=== PATIENT | female | born 1960 | race Caucasian/White ===

== ENCOUNTER 2016-11-26 08:14 | Inpatient (IN) | payer OTHER ==
[~2016-11-26] VITALS: Ht 162.6 cm; Wt 116.5 kg
[2016-11-26] VITALS (11 sets, daily range): BP systolic 94–176; BP diastolic 47–113
[2016-11-26] MEDS ORDERED: CARVEDILOL6.25 M1 PO (08:21)
[2016-11-26] MEDS ORDERED: ZESTRIL20 MG PO (08:22)
[2016-11-26] MEDS ORDERED: AMOXICILLIN500 M1 PO (08:22)
[2016-11-26 08:48] LABS: BASOPHIL % 0.8 % (0-2); PLATELET COUNT 314 x10^3mcL (130-400); RED CELL DISTRIBUTION WIDTH 18.8 % (11.5-14.5)
[2016-11-26 08:54] LABS: CALCIUM 8.5 mg/dL (8.5-10.1); CARBON DIOXIDE 24.1 mmol/L (21-32); CHLORIDE SERUM 103 mmol/L (98-107); CREATININE SERUM 1.2 mg/dL (0.6-1.0); GFR1 49 mL/min; GLUCOSE SERUM 327 mg/dL (74-106); POTASSIUM SERUM 4.2 mmol/L (3.5-5.1); SODIUM SERUM 141 mmol/L (136-145)
[2016-11-26 09:06] LABS: ALBUMIN 3.6 g/dL (3.4-5.0); ALKALINE PHOSPHATASE 162 U/L (46-116); ALT/SGPT 28 U/L (14-59); AMYLASE 54 U/L (25-115); AST/SGOT 35 U/L (15-37); BILIRUBIN TOTAL 0.54 mg/dL (0.20-1.00); CHOLESTEROL 200 mg/dL (<200); HDL CHOLESTEROL 60 mg/dL (40-60); LIPASE 282 IU/L (73-393); T4(THYROXINE) 6.2 ug/dL (4.7-13.3); TOTAL PROTEIN, SERUM 7.5 g/dL (6.4-8.2)
[2016-11-26 09:43] LABS: AMPHETAMINE QUAL UR NONE DETECTED (NEG <=1000)
[2016-11-26 09:49] LABS: MAGNESIUM 2.4 mg/dL (1.8-2.4)
[2016-11-26 09:51] LABS: T3 TOTAL 0.93 ng/mL
[2016-11-26 09:53] LABS: CHOLESTEROL/HDL RATIO 3.4
[2016-11-26 09:56] LABS: FREE T4 0.94 ng/dL (0.76-1.46); FREE THYROXINE INDEX 1.8 ug/dL (1.4-4.5); T4(THYROXINE) 5.8 ug/dL (4.7-13.3)
[2016-11-26 10:26] LABS: UA SPECIFIC GRAVITY >=1.030 (1.005-1.035); microscopic required? YES; urine erythrocyte 2+ (NEGATIVE)
[2016-11-27] VITALS (15 sets, daily range): BP systolic 96–164; BP diastolic 51–84
[2016-11-27 05:37] LABS: BASOPHIL % 0.8 % (0-2); PLATELET COUNT 206 x10^3mcL (130-400)
[2016-11-27 05:46] LABS: CALCIUM 8.1 mg/dL (8.5-10.1); CARBON DIOXIDE 33.7 mmol/L (21-32); CHLORIDE SERUM 107 mmol/L (98-107); CREATININE SERUM 0.8 mg/dL (0.6-1.0); GFR1 > 60 mL/min; GLUCOSE SERUM 101 mg/dL (74-106); MAGNESIUM 1.9 mg/dL (1.8-2.4); PHOSPHOROUS 3.4 mg/dL (2.5-4.9); SODIUM SERUM 144 mmol/L (136-145)
[2016-11-27 05:49] LABS: POTASSIUM SERUM 2.9 mmol/L (3.5-5.1); RED CELL DISTRIBUTION WIDTH 18.2 % (11.5-14.5)
[2016-11-28 03:13] VITALS: BP 144/77
[2016-11-28 05:40] LABS: PLATELET COUNT 189 x10^3mcL (130-400)
[2016-11-28 05:41] LABS: RED CELL DISTRIBUTION WIDTH 17.9 % (11.5-14.5)
[2016-11-28 05:47] LABS: CALCIUM 8.7 mg/dL (8.5-10.1); CARBON DIOXIDE 30.4 mmol/L (21-32); CHLORIDE SERUM 103 mmol/L (98-107); CREATININE SERUM 0.6 mg/dL (0.6-1.0); GFR1 > 60 mL/min; GLUCOSE SERUM 106 mg/dL (74-106); PHOSPHOROUS 3.1 mg/dL (2.5-4.9); POTASSIUM SERUM 3.5 mmol/L (3.5-5.1); SODIUM SERUM 140 mmol/L (136-145)
[2016-11-28 07:45] VITALS: BP 138/87
[2016-11-28 11:36] VITALS: Ht 162.6 cm; Wt 116.5 kg
[2016-11-28 12:00] VITALS: BP 128/81
[2016-11-28 16:25] VITALS: BP 122/60
[2016-11-28 19:29] VITALS: BP 128/74
[2016-11-28 23:48] VITALS: BP 121/81
[2016-11-29 04:16] VITALS: BP 109/63
[2016-11-29 05:04] LABS: BASOPHIL % 1.1 % (0-2); CALCIUM 8.5 mg/dL (8.5-10.1); CARBON DIOXIDE 34.7 mmol/L (21-32); CHLORIDE SERUM 101 mmol/L (98-107); CREATININE SERUM 0.6 mg/dL (0.6-1.0); GFR1 > 60 mL/min; GLUCOSE SERUM 107 mg/dL (74-106); MAGNESIUM 1.7 mg/dL (1.8-2.4); PHOSPHOROUS 3.3 mg/dL (2.5-4.9); PLATELET COUNT 199 x10^3mcL (130-400); POTASSIUM SERUM 3.2 mmol/L (3.5-5.1); SODIUM SERUM 140 mmol/L (136-145)
[2016-11-29 05:06] LABS: RED CELL DISTRIBUTION WIDTH 17.6 % (11.5-14.5)
[2016-11-29 07:45] VITALS: BP 119/80
[2016-11-29 12:00] VITALS: BP 114/93
[2016-11-29 16:00] VITALS: BP 103/73
[2016-11-29 20:58] VITALS: BP 108/61
[2016-11-30 05:51] VITALS: BP 123/78
[2016-11-30 06:11] LABS: CALCIUM 8.7 mg/dL (8.5-10.1); CARBON DIOXIDE 29.6 mmol/L (21-32); CHLORIDE SERUM 101 mmol/L (98-107); CREATININE SERUM 0.7 mg/dL (0.6-1.0); GFR1 > 60 mL/min; GLUCOSE SERUM 110 mg/dL (74-106); MAGNESIUM 1.8 mg/dL (1.8-2.4); PHOSPHOROUS 3.6 mg/dL (2.5-4.9); POTASSIUM SERUM 3.5 mmol/L (3.5-5.1); SODIUM SERUM 137 mmol/L (136-145)
[2016-11-30 06:13] LABS: BASOPHIL % 0.4 % (0-2); PLATELET COUNT 223 x10^3mcL (130-400)
[2016-11-30 06:31] LABS: RED CELL DISTRIBUTION WIDTH 17.8 % (11.5-14.5)
[2016-11-30 09:29] VITALS: BP 96/55
[2016-11-30 14:00] VITALS: BP 120/71
[2016-11-30] MEDS ORDERED: ATIVAN0.5 M1 PO (15:41)
[2016-11-30] MEDS ORDERED: CARVEDILOL6.25 M1 PO (15:41)
[2016-11-30] MEDS ORDERED: CLEOCIN HCL300 MG PO (15:41)
[2016-11-30] MEDS ORDERED: ZESTRIL20 MG PO (15:41)
[2016-11-30] MEDS ORDERED: LACTULOSE10 GM/152 PO (15:41)
[2016-11-30] MEDS ORDERED: LEVAQUIN750 MG PO (15:41)
[2016-11-30] MEDS ORDERED: LAC PO (15:41)
[2016-11-30 15:59] VITALS: BP 120/71
== END 2016-11-30 18:36 | disposition home or self-care (01) | DRG 208 ==
LOC: ED 08:14 → IC 08:48 → DU 11-29 18:06 → MU 11-30 16:16
PROVIDERS: Emergency Medicine; Family Medicine; ADMIT Family Medicine
PROC: 0BH18EZ Insertion of Endotracheal Airway into Trachea, Via Natural or Artificial Opening Endoscopic (ICD-10-PCS; principal; 2016-11-26)
PROC: 5A1945Z Respiratory Ventilation, 24-96 Consecutive Hours (ICD-10-PCS; 2016-11-26)
PROC: 02HV33Z Insertion of Infusion Device into Superior Vena Cava, Percutaneous Approach (ICD-10-PCS; 2016-11-26)
PROC: B548ZZA Ultrasonography of Superior Vena Cava, Guidance (ICD-10-PCS; 2016-11-26)
DX: J69.0 Pneumonitis due to inhalation of food and vomit (principal); J96.01 Acute respiratory failure with hypoxia; I50.43 Acute on chronic combined systolic (congestive) and diastolic (congestive) heart failure; N17.0 Acute kidney failure with tubular necrosis; F33.9 Major depressive disorder, recurrent, unspecified; I42.9 Cardiomyopathy, unspecified; E66.2 Morbid (severe) obesity with alveolar hypoventilation; K72.90 Hepatic failure, unspecified without coma; R80.8 Other proteinuria; E78.5 Hyperlipidemia, unspecified; E03.8 Other specified hypothyroidism; F10.10 Alcohol abuse, uncomplicated; I11.0 Hypertensive heart disease with heart failure; E87.6 Hypokalemia; E83.42 Hypomagnesemia; Z71.41 Alcohol abuse counseling and surveillance of alcoholic; Z71.6 Tobacco abuse counseling; Z71.3 Dietary counseling and surveillance; F17.210 Nicotine dependence, cigarettes, uncomplicated; F41.1 Generalized anxiety disorder; Z68.41 Body mass index [BMI] 40.0-44.9, adult; Z91.19 Patient's noncompliance with other medical treatment and regimen
CPT/HCPCS: 36556; 36600; 80307; 82962; 83880; 84439; 94150; A4628; C9113; G0480; J0330; J1642; J1644; J1940; J1956; J2060; J2250; J2270; J2543; J2704; J3010; J3480; J3490; J7030; J7040; J7620; J7626; Q0092

== ENCOUNTER → 2016-12-16 | Outpatient (CLI) | payer OTHER ==
[~2016-12-16] MED LIST: AMOXICILLIN500 M1 PO; ATIVAN0.5 M1 PO; CARVEDILOL6.25 M1 PO; CLEOCIN HCL300 MG PO; LAC PO; LACTULOSE10 GM/152 PO; LEVAQUIN750 MG PO; ZESTRIL20 MG PO
[2016-12-16 12:57] LABS: CALCIUM 9.4 mg/dL (8.5-10.1); CARBON DIOXIDE 31.7 mmol/L (21-32); CHLORIDE SERUM 104 mmol/L (98-107); CREATININE SERUM 0.8 mg/dL (0.6-1.0); GFR1 > 60 mL/min; GLUCOSE SERUM 158 mg/dL (74-106); MAGNESIUM 1.9 mg/dL (1.8-2.4); POTASSIUM SERUM 4.2 mmol/L (3.5-5.1); SODIUM SERUM 141 mmol/L (136-145)
== END | disposition home or self-care (01) ==
LOC: LB 12:14
DX: I10 Essential (primary) hypertension (principal); I50.9 Heart failure, unspecified; I42.9 Cardiomyopathy, unspecified

== ENCOUNTER → 2017-07-02 | Outpatient (CLI) | payer OTHER ==
[2017-07-02 09:26] LABS: BASOPHIL % 1.1 % (0-2); PLATELET COUNT 212 x10^3mcL (130-400); RED CELL DISTRIBUTION WIDTH 14.3 % (11.5-14.5)
[2017-07-02 09:46] LABS: ALBUMIN 3.5 g/dL (3.4-5.0); ALKALINE PHOSPHATASE 101 U/L (46-116); ALT/SGPT 22 U/L (14-59); AST/SGOT 16 U/L (15-37); BILIRUBIN TOTAL 0.61 mg/dL (0.20-1.00); CARBON DIOXIDE 29.1 mmol/L (21-32); CHLORIDE SERUM 106 mmol/L (98-107); CREATININE SERUM 0.8 mg/dL (0.6-1.0); GFR1 > 60 mL/min; GLUCOSE SERUM 93 mg/dL (74-106); POTASSIUM SERUM 4.7 mmol/L (3.5-5.1); SODIUM SERUM 141 mmol/L (136-145); TOTAL PROTEIN, SERUM 7.8 g/dL (6.4-8.2); TRIGLYCERIDES 121 mg/dL (<150)
[2017-07-02 09:47] LABS: CHOLESTEROL 262 mg/dL (<200); CHOLESTEROL/HDL RATIO 2.4; HDL CHOLESTEROL 108 mg/dL (40-60)
[2017-07-02 09:58] LABS: FREE T4 0.89 ng/dL (0.76-1.46); FREE THYROXINE INDEX 2.6 ug/dL (1.4-4.5); T4(THYROXINE) 7.7 ug/dL (4.7-13.3)
[2017-07-02 10:00] LABS: T3 TOTAL 1.07 ng/mL
[2017-07-03 18:19] LABS: microalbumin:creatinine ratio 12.6 (0.0-30.0)
== END | disposition home or self-care (01) ==
LOC: LB 08:58
PROVIDERS: Student in an Organized Health Care Education/Training Program
DX: I50.32 Chronic diastolic (congestive) heart failure (principal)
CPT/HCPCS: 84439

== ENCOUNTER → 2017-07-06 | Outpatient (CLI) | payer OTHER | END | disposition home or self-care (01) | LOC: CA 09:04 | DX: I42.9 Cardiomyopathy, unspecified (principal); I10 Essential (primary) hypertension ==

== ENCOUNTER 2018-10-06 14:20 | Inpatient (IN) | payer OTHER ==
[~2018-10-06] VITALS: Ht 162.6 cm; Wt 138.0 kg
[2018-10-06 15:06] LABS: PLATELET COUNT 192 x10^3mcL (130-400)
[2018-10-06 15:07] LABS: RED CELL DISTRIBUTION WIDTH 16.2 % (11.5-14.5)
[2018-10-06 15:34] LABS: CALCIUM 8.7 mg/dL (8.5-10.1); CARBON DIOXIDE 31.1 mmol/L (21-32); CHLORIDE SERUM 106 mmol/L (98-107); CREATININE SERUM 0.9 mg/dL (0.6-1.0); GFR1 > 60 mL/min; GLUCOSE SERUM 125 mg/dL (74-106); POTASSIUM SERUM 4.6 mmol/L (3.5-5.1); SODIUM SERUM 144 mmol/L (136-145)
[2018-10-06 15:38] LABS: ALKALINE PHOSPHATASE 83 U/L (46-116); ALT/SGPT 44 U/L (14-59); AST/SGOT 36 U/L (15-37); BILIRUBIN TOTAL 0.5 mg/dL (0.20-1.00); TOTAL PROTEIN, SERUM 6.8 g/dL (6.4-8.2)
[2018-10-06 15:39] LABS: ALBUMIN 3.2 g/dL (3.4-5.0)
[2018-10-06] MEDS ORDERED: ZES10 PO (17:10)
[2018-10-06] MEDS ORDERED: LASIX20 MG PO (17:11)
[2018-10-06] MEDS ORDERED: BAYER ASPIRIN R81 MG PO (17:11)
[2018-10-06] MEDS ORDERED: CORE25 PO (17:22)
[2018-10-06 19:26] LABS: MAGNESIUM 2.2 mg/dL (1.8-2.4); PHOSPHOROUS 4.1 mg/dL (2.5-4.9)
[2018-10-06 19:36] LABS: FREE T4 0.95 ng/dL (0.76-1.46); FREE THYROXINE INDEX 2.4 ug/dL (1.4-4.5); T4(THYROXINE) 6.5 ug/dL (4.7-13.3)
[2018-10-06 19:37] LABS: T3 TOTAL 0.87 ng/mL
[2018-10-06 19:45] VITALS: BP 118/69
[2018-10-06 19:50] VITALS: Ht 162.6 cm; Wt 138.0 kg
[2018-10-07 06:03] VITALS: BP 118/61
[2018-10-07 06:27] LABS: BASOPHIL % 1.2 % (0-2); PLATELET COUNT 199 x10^3mcL (130-400)
[2018-10-07 06:37] LABS: CARBON DIOXIDE 32.3 mmol/L (21-32); CHLORIDE SERUM 104 mmol/L (98-107); CREATININE SERUM 0.8 mg/dL (0.6-1.0); GFR1 > 60 mL/min; GLUCOSE SERUM 113 mg/dL (74-106); MAGNESIUM 2.1 mg/dL (1.8-2.4); POTASSIUM SERUM 3.6 mmol/L (3.5-5.1); SODIUM SERUM 143 mmol/L (136-145)
[2018-10-07 06:43] LABS: RED CELL DISTRIBUTION WIDTH 16.3 % (11.5-14.5)
[2018-10-07 09:16] VITALS: BP 117/72
[2018-10-07 13:46] VITALS: BP 125/73; BP 83/45
[2018-10-07 14:00] VITALS: BP 101/45
[2018-10-07 16:50] LABS: UA SPECIFIC GRAVITY 1.025 (1.005-1.035); microscopic required? YES; urine erythrocyte TRACE (NEGATIVE)
[2018-10-07 17:13] VITALS: BP 98/62
[2018-10-07 21:00] VITALS: BP 95/58
[2018-10-08 06:00] VITALS: BP 123/54
[2018-10-08 06:06] LABS: BASOPHIL % 0.7 % (0-2); PLATELET COUNT 184 x10^3mcL (130-400)
[2018-10-08 06:25] LABS: CALCIUM 8.4 mg/dL (8.5-10.1); CHLORIDE SERUM 103 mmol/L (98-107); CREATININE SERUM 0.7 mg/dL (0.6-1.0); GFR1 > 60 mL/min; GLUCOSE SERUM 117 mg/dL (74-106); POTASSIUM SERUM 3.8 mmol/L (3.5-5.1); SODIUM SERUM 141 mmol/L (136-145)
[2018-10-08 06:38] LABS: RED CELL DISTRIBUTION WIDTH 16.1 % (11.5-14.5)
[2018-10-08 09:26] VITALS: BP 120/54
[2018-10-08 12:48] VITALS: BP 104/60
[2018-10-08 12:51] VITALS: BP 104/60
== END 2018-10-08 13:22 | disposition home or self-care (01) | DRG 292 ==
LOC: ED 14:20 → DU 17:55
PROVIDERS: Emergency Medicine; ADMIT Family Medicine
DX: I11.0 Hypertensive heart disease with heart failure (principal); E44.1 Mild protein-calorie malnutrition; Z68.43 Body mass index [BMI] 50.0-59.9, adult; I50.23 Acute on chronic systolic (congestive) heart failure; E78.5 Hyperlipidemia, unspecified; E66.9 Obesity, unspecified; F17.210 Nicotine dependence, cigarettes, uncomplicated; R73.03 Prediabetes; E02 Subclinical iodine-deficiency hypothyroidism
CPT/HCPCS: 83880; 84439; J1940; J3490; Q0092

== ENCOUNTER → 2019-09-25 | Outpatient (CLI) | payer OTHER ==
[~2019-09-25] MED LIST changes: +BAYER ASPIRIN R81 MG PO; +CORE25 PO; +LASIX20 MG PO; +ZES10 PO
== END | disposition home or self-care (01) ==
LOC: RD 14:47
DX: S89.92XA Unspecified injury of left lower leg, initial encounter (principal); X58.XXXA Exposure to other specified factors, initial encounter; Y92.9 Unspecified place or not applicable

== ENCOUNTER → 2020-04-02 | Outpatient (CLI) | payer OTHER ==
[2020-04-02 11:28] LABS: BASOPHIL % 1.4 % (0-2); PLATELET COUNT 213 x10^3mcL (130-400); RED CELL DISTRIBUTION WIDTH 14.8 % (11.5-14.5)
[2020-04-02 11:46] LABS: ALBUMIN 3.5 g/dL (3.4-5.0); ALKALINE PHOSPHATASE 77 U/L (46-116); ALT/SGPT 32 U/L (14-59); AST/SGOT 21 U/L (15-37); BILIRUBIN TOTAL 0.5 mg/dL (0.20-1.00); CARBON DIOXIDE 32.6 mmol/L (21-32); CHLORIDE SERUM 101 mmol/L (98-107); CREATININE SERUM 0.8 mg/dL (0.6-1.0); GFR1 > 60 mL/min; GLUCOSE SERUM 117 mg/dL (74-106); POTASSIUM SERUM 4.3 mmol/L (3.5-5.1); SODIUM SERUM 138 mmol/L (136-145); TOTAL PROTEIN, SERUM 7.5 g/dL (6.4-8.2)
== END | disposition home or self-care (01) ==
LOC: CA 10:28
PROVIDERS: ATTEND Internal Medicine
DX: I11.9 Hypertensive heart disease without heart failure (principal); J44.9 Chronic obstructive pulmonary disease, unspecified